=== PATIENT | female | born 1965 | race Caucasian/White ===

== ENCOUNTER 2016-10-02 13:15 | Day surgery (SDC) | payer OTHER ==
--- NOTE | 2016-10-01 11:45 | HP ---
DATE OF ADMISSION: 10/02/2016. This patient is scheduled for Same Day Surgery admission by Dr. Marrero tomorrow , October 02, 2016. DATE OF PREOPERATIVE HISTORY AND PHYSICAL EXAMINATION: Saturday, October 01, 2016. ATTENDING SURGEON: Dr. Flaco Marrero (dictated by Pat Blair NP). CHIEF COMPLAINT: Lipoma upper left back. HISTORY OF PRESENT ILLNESS: The patient is a 51-year-old female referred to Dr. Marrero by Dr. Sneed because of an enlarging lipoma on the upper left back. It has been present for over one year. She cannot see it except when she raises her arm, then is moves around to the side. She finds it uncomfortable when she leans back in a chair and has trouble wearing a sports bra. Dr. Marrero examined the patient and notes a 5 mg soft rubbery mobile mass overlying the left lower scapular region. He has recommended excision of the lipoma in the left scapular region as a same day surgery procedure. Dr. Marrero noted that the mass seems to be intramuscular as it moves with arm abduction. Dr. Marrero described the nature of the surgical procedure, the relevant risks and benefits, and today I reviewed the typical postoperative care and recovery. The patient has had a chance to ask questions and stated that she understands the information and is satisfied with the answers given to her questions. She will sign surgical consent on the day of surgery. PAST MEDICAL HISTORY: Chronic back pain, migraine headaches and eczema. PAST SURGICAL HISTORY: section 1997, diskectomy and laminectomy 2003, benign breast biopsy 2013. OB HISTORY: 2, para 2. Last menstrual period started 09/26/2016 and her periods are still regular. She is up-to-date with breast exam and Pap smear. MEDICATIONS: 1. Ibuprofen prn. 2. Excedrin prn migraine headaches. 3. Locoid topical cream for eczema as needed. ALLERGIES: PENICILLIN CAUSES SEVERE RASH. FAMILY HISTORY: Mother and maternal grandmother with severe vomiting after anesthesia. No family history of clotting disorders or bleeding tendencies. SOCIAL HISTORY: She is . She is a nonsmoker and exercises one to two hours daily. She drinks alcohol only on special occasions and denies the use of other substances. REVIEW OF SYSTEMS: She denies any cardiac conditions or complaints. She denies any respiratory conditions or complaints. She denies any previous anesthesia complications. She denies any gastrointestinal conditions or complaints. She denies any bleeding tendencies. She has never received a blood transfusion. She has been borderline anemic in the past. She denies any genitourinary complaints or conditions. She suffers from chronic back pain. The back pain does not prevent her from exercising routinely. She reports migraine headaches. She denies any history of deep vein thrombosis of pulmonary embolism. PHYSICAL EXAMINATION GENERAL: The patient is a 51-year-old female, well-developed, well-nourished, in no acute distress. VITAL SIGNS: Height 61.5 inches, weight 113 pounds, body mass index 21. Blood pressure 102/70, pulse 60 and regular, respiratory rate 16, temperature 97.8 tympanic. SKIN: Warm, dry, intact. HEENT: Benign. NECK: Supple. No cervical lymphadenopathy. BACK: With palpable 5 cm mobile mass in the left scapular region, nontender, no overlying skin changes. When she raises her arm, the mass moves inferior and anterior. No other masses on her back. No CVA tenderness. LUNGS: Breath sounds bilaterally clear and equal. HEART: Regular rate and rhythm. No murmurs or rubs appreciated. BREASTS: Exam done within the past month, not repeated. ABDOMEN: Active bowel sounds, soft, nondistended. No obvious masses or organomegaly. EXTREMITIES: Warm without edema or skin ulceration. PELVIC: Exam done within the past month, not repeated. RECTAL: Exam done within the past month, not repeated. NEUROLOGIC: Alert and oriented times three, steady gait. IMPRESSION: Lipoma left scapular region. PLAN: Same Day Surgery admission tomorrow, October 02, [address] Marrero' service for excision of lipoma left scapular region. ARIANA BLAIR NP CC: Dr. Jaime* [id number]/[facility] #: [id number] MTDD
[~2016-10-02 13:15] MED LIST: Buffered Lidocaine 1% SYR 3ML* 3 ML/SYR SYRINGE INTRADERM ONE; Famotidine IV* 10 MG/ML 2 ML (20 mg) IV ONE; Morphine INJ* 2 MG/ML 1 ML SYRINGE IV PRN; PROCHLORPERAZINE INJ 5 MG/ML 2 ML VIAL IV PRN; Scopolamine 1.5 mg* PATCH TRANSDERM ONE; fentaNYL* 50 MCG/ML 2 ML VIAL (100 MCG VIAL) IV PRN; oxyCODONE/Acetamin 5/325 MG* TAB PO PRN
[2016-10-02 13:42] LABS: Manual Entry Verification AS; UR Preg Internal Control QC Line Present; UR Preg Kit Lot# 6030156
[2016-10-02] MEDS ORDERED: Scopolamine 1.5 mg* PATCH ONE (15:46)
[2016-10-02] MEDS ORDERED: Famotidine IV* 10 MG/ML 2 ML (20 mg) ONE (15:46)
[2016-10-02] MEDS ORDERED: Lidocaine 1% INJ* 10 MG/ML 30 ML SDV ONE (16:51)
[2016-10-02] MEDS ORDERED: Bupivacaine 0.5% W/EPI SDV* 30 ML VIAL ONE (16:51)
[2016-10-02] MEDS ORDERED: Midazolam* 1 MG/ML 5 ML VIAL (5 MG) ONE (17:02)
[2016-10-02] MEDS ORDERED: KETAMINE HCL* 50 MG/ML 10 ML VIAL ONE (17:02)
[2016-10-02] MEDS ORDERED: fentaNYL* 50 MCG/ML 2 ML VIAL (100 MCG VIAL) ONE (17:02)
[2016-10-02] MEDS ORDERED: Propofol* 10 MG/ML 20 ML BTL IV PUSH ONE (17:16)
[2016-10-02] MEDS ORDERED: Ondansetron INJ* 2 MG/ML VIAL ONE (18:20)
[2016-10-02] MEDS ORDERED: Dexamethasone IV* 4 MG/ML 1 ML (4 MG) ONE (18:20)
[2016-10-02] MEDS ORDERED: Ketorolac INJ* 30 MG/ML 1 ML VIAL ONE (18:20)
[2016-10-02] MEDS ORDERED: Flumazenil* 0.1 MG/ML 5 ML MDV ONE (19:12)
[2016-10-02] MEDS ORDERED: oxyCODONE/Acetamin 5/325 MG* TAB PO PRN (19:13)
[2016-10-02 20:22] VITALS: BP 134/70
--- NOTE | 2016-10-03 06:34 | OP ---
DATE OF OPERATION: 10/02/16 - [facility] DATE OF : 65 SURGEON: Flaco Marrero MD CHLORINE OPERATOR: CONNIE Hightower ANESTHESIOLOGIST: Dr. Taylor. ANESTHESIA: Local MAC. PRE-OP DIAGNOSIS: Lipoma of the left scapular region in the back. POST-OP DIAGNOSIS: Intramuscular lipoma, left scapular region in the back. OPERATIVE PROCEDURE: Open right inguinal hernia repair with mesh. ESTIMATED BLOOD LOSS: Minimal. IV FLUIDS: Crystalloids. SPECIMEN: Lipoma of left scapular region. DRAINS: None. COMPLICATIONS: None. COUNTS: The instrument, needle, and sponge counts were correct. DESCRIPTION OF PROCEDURE: The patient was marked in the preoperative area and brought to the operating room and placed in the right lateral decubitus position on the table. She was administered intravenous sedation, and prepped and draped in the usual sterile fashion. Time-out was performed. Local anesthetic was infiltrated over the mass at the lower lateral border of the scapula and a transverse incision was created. Through the skin, subcutaneous tissues were divided with cautery. The latissimus muscle fascia was divided transversely and the muscle was split along the line of its fibers dividing through the muscle to the area of the lipoma. The lipoma was dissected out circumferentially using a combination of sharp and blunt dissection and cautery without disturbing the capsule and taking small portions of skeletal muscle with it. The lipoma came out quite easily and was submitted to Pathology. The wound was inspected, it appeared to be at the lipoma into the serratus muscle and muscles loosely brought together with 3-0 Polysorb and after that the latissimus was loosely brought together with 3-0 Polysorb, both in interrupted fashion. The subcutaneous tissues were closed with 3-0 Polysorb in the interrupted fashion and then skin was closed with 4-0 Monocryl in running subcuticular fashion. Steri- Strips were applied. Dressings were applied. The patient tolerated the procedure well, was transferred to the recovery room in stable condition. CC: Denisse Jaime MD; [facility] * [id number]/[facility] #: [id number] MTDD
[2016-10-05] MEDS ORDERED: Scopolomine PATCH Remove* 1 NOTE MISC PATCH OFF ONE (06:00)
== END 2016-10-02 21:01 | disposition home or self-care (01) ==
LOC: OR 13:15
PROVIDERS: ATTEND Surgery
DX: D17.9 Benign lipomatous neoplasm, unspecified (principal)
CPT/HCPCS: 81025; 88304; A9270-GY; J1100; J1885; J2001; J2250; J2405; J2704; J3010